=== PATIENT | female | born 1960 | race Caucasian/White ===

== ENCOUNTER 2017-06-02 10:11 | Emergency (ER) | payer BC, OTHER ==
[~2017-06-02 10:11] MED LIST: ALKA-SELTZER PO; ALKA-SELTZER125 MG; ASPIRIN PO; CELEBREX PO; CHANTIX PO; ESTRADIOL1 MG PO; LAMOTRIGINE100 MG PO; LAMOTRIGINE150 MG PO; LORATADINE PO; NEXIUM PO; NYSTATIN-TRIAMC15 G1 TP; OXYCODON-ACETA1 EAC1 PO; PHENERGAN25 MG PO; PREMARIN VAG CR45 GM VAG; PROZAC PO; REQUIP0.25 MG PO; TOVIAZ4 MG PO; ZOLPIDEM TARTRA10 MG PO; ZYRTEC PO; [UNRECOGNIZED DRUG - OTHER] PO
[2017-06-02] MEDS ORDERED: LEVAQUIN (10:21)
[2017-06-02] MEDS ORDERED: EPIPEN JR0.15 MG/01 (10:21)
[2017-06-02] MEDS ORDERED: FLONASE 0.05% N16 G1 (10:21)
== END 2017-06-02 11:33 | disposition home or self-care (01) ==
LOC: SED 10:11
DX: S00.462A Insect bite (nonvenomous) of left ear, initial encounter (principal); E11.9 Type 2 diabetes mellitus without complications; I10 Essential (primary) hypertension; E78.5 Hyperlipidemia, unspecified; K58.9 Irritable bowel syndrome, unspecified; Z90.49 Acquired absence of other specified parts of digestive tract; Z90.710 Acquired absence of both cervix and uterus; Z88.0 Allergy status to penicillin; Z91.040 Latex allergy status; Z91.030 Bee allergy status
CPT/HCPCS: 82947; 99283